=== PATIENT | female | born 1960 | race Caucasian/White ===

== ENCOUNTER 2020-08-08 09:00 | Outpatient (REF) | payer BC, SELFPAY ==
--- NOTE | 2020-08-08 09:05 | MR_ITS ---
EXAMINATION: BRAIN MRI WITHOUT CONTRAST CLINICAL INFORMATION: Multiple sclerosis. COMPARISON: Brain MRI 08/04/2019. TECHNIQUE: Multiplanar MR imaging of the brain was performed without contrast. FINDINGS: There are numerous foci of T2 FLAIR signal hyperintensity primarily involving the supratentorial white matter with a predilection for the juxtacortical white matter and callososeptal interface consistent with the patient's clinical history of multiple sclerosis. Overall the extent of disease has remained stable when compared to prior imaging from 08/04/2019 with no evidence of new or worsening demyelination. There is no acute territorial infarct. No pathological magnetic susceptibility artifact. Intracranial vascular flow voids are grossly maintained. The small laterally projecting dome-shaped meningioma involving the left anterior clinoid process is suboptimally assessed on this examination due to the absence of intravenous contrast. Grossly it has remained stable and there are no abnormal signal changes within the adjacent temporal lobe. No intracranial mass effect or midline shift. Lateral and third ventricles are proportionate to the subarachnoid spaces. The cervicomedullary junction is normal. No acute bone marrow signal changes. There is no mastoid or middle ear effusion. No active paranasal sinus disease. MR/MR head/brain wo con IMPRESSION: Stable chronic white matter disease consistent with the patient's clinical history of multiple sclerosis. The small laterally projecting dome-shaped meningioma involving the left anterior clinoid process is suboptimally assessed on this examination due to the absence of intravenous contrast. Grossly it has remained stable and there are no abnormal signal changes within the adjacent temporal lobe.
== END 2020-08-08 09:01 | disposition home or self-care (01) ==
LOC: HO.MRI 09:00
PROVIDERS: PCP Physician Assistant; Visit Provider Psychiatry & Neurology Neurology
DX: G35 Multiple sclerosis (principal)
CPT/HCPCS: 70551

== ENCOUNTER 2020-11-24 09:41 | Outpatient (REF) | payer BC, SELFPAY ==
--- NOTE | ~2020-11-24 | US_ITS ---
EXAMINATION: US EXTRACRANIAL CAROTID DUPLEX, BILATERAL CLINICAL INFORMATION: Amaurosis fugax. COMPARISON: None. TECHNIQUE: Real-time ultrasound and Doppler techniques (integrating B-mode 2-D vascular images, Doppler spectral analysis and color-flow Doppler imaging) were utilized to interrogate the extracranial carotid arteries, the vertebral arteries and proximal subclavian arteries bilaterally. The degree of stenosis is determined by criteria similar to NASCET. FINDINGS: Right Side: 1. There is minimal atherosclerotic plaque seen in the bifurcation/proximal ICA region. 2. The common carotid artery PSV proximally is 106 cm/s and distally 91.5 cm/s. 3. The proximal internal carotid artery velocities are 75 cm/s systolic and 20.5 cm/s diastolic. Distal internal carotid artery velocities are 140 cm/s systolic and 41.6 cm/s diastolic. 4. The proximal external carotid artery PSV is 117 cm/s. 5. The vertebral artery shows antegrade flow. 6. The subclavian artery waveforms are normal. Left Side: 1. There is minimal atherosclerotic plaque seen in the bifurcation/proximal ICA region. 2. The common carotid artery PSV proximally is 128 cm/s and distally 95.1 cm/s. 3. The proximal internal carotid artery velocities are 56.2 cm/s systolic and 16.9 cm/s diastolic. 4. The proximal external carotid artery PSV is 118 cm/s. 5. The vertebral artery shows antegrade flow. 6. The subclavian artery waveforms are normal. US/US carotid duplex BI IMPRESSION: 1. RIGHT: Minimal, non-hemodynamically significant stenosis of the proximal right internal carotid artery corresponding to a 0-49% stenosis by velocity criteria. Taking into account velocity in the distal internal carotid artery, this may correspond with a 50-79% stenosis. 2. LEFT: Minimal, non-hemodynamically significant stenosis of the proximal left internal carotid artery corresponding to a 0-49% stenosis by velocity criteria.
--- NOTE | ~2020-11-24 | CT_ITS ---
EXAMINATION: CT HEAD WITHOUT CONTRAST CLINICAL INFORMATION: Osteochondromatosis fugax COMPARISON: MRI brain 08/08/2020 TECHNIQUE: Contiguous axial imaging was performed from the skull base to vertex without intravenous administration of contrast. This CT examination was performed using dose optimization techniques as appropriate, variously including the following: *Automated exposure control *Adjustment of mA and/or kV according to patient size (this includes techniques or standardized protocols for targeted exams where dose is matched to indication/reason for exam; i.e. extremities or head) *Use of iterative reconstruction technique DLP: 774 mGy-cm FINDINGS: There is no evidence of acute intracranial hemorrhage or territorial infarction. There are several subcortical hypodensities in periventricular white matter likely related to demyelination as were present on the previous MRI 08/08/2020. No abnormal mass effect or midline shift is seen. [place] to white matter differentiation is well preserved. No extra-axial fluid collections are identified. The ventricles are normal in size. There is no abnormal attenuation within the brain parenchyma. The osseous structures and soft tissues are normal. The mastoid air cells and visualized portions of the paranasal sinuses are well aerated. CT/CT head/brain wo con IMPRESSION: No acute intracranial process seen. Several subcortical hypodensities in both cerebral hemispheres likely demyelination changes. These are stable compared to MRI brain 08/08/2020.
== END 2020-11-24 09:42 | disposition home or self-care (01) ==
LOC: HO.US 09:41
PROVIDERS: PCP Physician Assistant; Visit Provider Physician Assistant
DX: G45.3 Amaurosis fugax (principal)
CPT/HCPCS: 70450; 93880

== ENCOUNTER 2021-06-20 12:13 | Outpatient (REF) | payer BC, SELFPAY | END 2021-06-20 12:14 | disposition home or self-care (01) | LOC: HO.MDS 12:13 | PROVIDERS: PCP Physician Assistant; Visit Provider Psychiatry & Neurology Neurology | DX: G35 Multiple sclerosis (principal); M54.5 Low back pain; L03.90 Cellulitis, unspecified | CPT/HCPCS: 96365; J2930 ==

== ENCOUNTER 2021-06-21 13:42 | Outpatient (REF) | payer BC, SELFPAY | END 2021-06-21 13:43 | disposition home or self-care (01) | LOC: HO.MDS 13:42 | PROVIDERS: PCP Physician Assistant; Visit Provider Psychiatry & Neurology Neurology | DX: G35 Multiple sclerosis (principal) | CPT/HCPCS: 96365; J2930 ==

== ENCOUNTER 2021-07-12 07:22 | Outpatient (REF) | payer BC, SELFPAY ==
[2021-07-12 08:04] LABS: Hematocrit 39.3 % (37-47); Hemoglobin 13.3 g/dl (12.0-16.0); Mean Corpuscular HGB Conc 33.8 g/dl (31.0-35.0); Mean Corpuscular Hemoglobin 32.7 pg (27.0-33.0); Mean Corpuscular Volume 96.6 fL (80-98); Mean Platelet Volume 10.2 fL (9.4-12.3); Platelet Count 230 X10*3/uL (160-400); Red Blood Count 4.07 X10*6/uL (4.20-5.50); Red Cell Distribution Width 12.4 % (11.0-16.0); White Blood Count 5.5 X10*3/uL (4.8-10.8)
[2021-07-12 08:23] LABS: Alanine Aminotransferase 45 U/L (0-31); Alkaline Phosphatase 60 U/L (39-117); Anion Gap 11 (12-20); Aspartate Amino Transferase 32 U/L (5-31); Bilirubin Total 1.4 mg/dL (0.0-1.0); Blood Urea Nitrogen 14 mg/dL (9-16); Calcium 9.1 mg/dL (8.4-10.2); Carbon Dioxide 28 mmol/L (22-29); Chloride 107 mmol/L (96-108); Cholesterol 183 mg/dL; Estimated Glomerular Filt Rate > 60; Glucose Fasting 155 mg/dL (60-99); HDL Cholesterol 58 mg/dL; LDL Cholesterol Calculated 97 mg/dl; Potassium 4.9 mmol/L (3.3-5.1); Sodium 141 mmol/L (135-145); Total Protein 6.2 g/dL (6.5-8.0); Triglycerides 142 mg/dL
[2021-07-12 08:47] LABS: TSH reflex Free T4 1.05 uIU/mL (0.32-4.0)
[2021-07-12 12:09] LABS: Creatinine Urine 106.08 mg/dL; Microalbumin Urine < 5.0 mg/L
== END 2021-07-12 07:23 | disposition home or self-care (01) ==
LOC: HO.LAB 07:22
PROVIDERS: PCP Physician Assistant; Visit Provider Physician Assistant
DX: I10 Essential (primary) hypertension (principal)
CPT/HCPCS: 36415; 80053; 80061; 82043; 84443; 85027

== ENCOUNTER 2021-09-06 08:14 | Outpatient (REF) | payer BC, SELFPAY ==
--- NOTE | ~2021-09-06 | US_ITS ---
EXAMINATION: US ABDOMEN COMPLETE CLINICAL INFORMATION: Abnormal levels of serum enzymes. COMPARISON: None TECHNIQUE: Real-time imaging of the abdominal viscera. FINDINGS: PANCREAS: Normal. ABDOMINAL AORTA: The proximal, mid, and distal segments are normal in caliber. INFERIOR VENA CAVA: Visualized portions are normal. LIVER: The liver is normal in size. The liver contour is normal. There is increased liver echogenicity. No focal hepatic lesion. There is no intrahepatic biliary duct dilatation seen. GALLBLADDER: The gallbladder wall thickness is 0.14 cm. The gallbladder is physiologically distended without evidence of stones, sludge, polyps, wall thickening or pericholecystic fluid. COMMON BILE DUCT: Normal in caliber measuring 0.4 cm in diameter. RIGHT KIDNEY: There is mild pelvic fullness No hydronephrosis. No renal calculi or focal parenchymal lesions. The kidney measures 10.6 cm in maximum dimension. LEFT KIDNEY: There is mild pelvic fullness No hydronephrosis. No renal calculi or focal parenchymal lesions. The kidney measures 11.3 cm in maximum dimension. SPLEEN: Normal. The spleen measures 8.7 cm in maximum dimension. FREE FLUID: None. US/US abdomen complete IMPRESSION: Mild hepatic steatosis. No focal lesion seen. Bilateral kidney pelvic fullness. No echogenic renal calculi. Rest of the abdominal ultrasound is unremarkable.
== END 2021-09-06 08:15 | disposition home or self-care (01) ==
LOC: HO.US 08:14
PROVIDERS: PCP Physician Assistant; Visit Provider Physician Assistant
DX: R74.8 Abnormal levels of other serum enzymes (principal)
CPT/HCPCS: 76700

== ENCOUNTER 2022-03-26 06:21 | Outpatient (REF) | payer BC, SELFPAY ==
[2022-03-26 07:34] LABS: Hematocrit 40.7 % (37.0-47.0); Hemoglobin 13.9 g/dl (12.0-16.0); Mean Corpuscular HGB Conc 34.2 g/dl (31.0-35.0); Mean Corpuscular Hemoglobin 32.7 pg (27.0-33.0); Mean Corpuscular Volume 95.8 fL (80.0-98.0); Mean Platelet Volume 10.5 fL (9.4-12.3); Platelet Count 240 X10*3/uL (160-400); Red Blood Count 4.25 X10*6/uL (4.20-5.50); Red Cell Distribution Width 12.5 % (11.0-16.0); White Blood Count 5.8 X10*3/uL (4.8-10.8)
[2022-03-26 07:57] LABS: Alanine Aminotransferase 29 U/L (0-31); Albumin Level 3.8 g/dL (3.5-5.0); Alkaline Phosphatase 55 U/L (39-117); Anion Gap 11 (12-20); Aspartate Amino Transferase 30 U/L (5-31); Bilirubin Total 1.3 mg/dL (0.0-1.0); Blood Urea Nitrogen 15 mg/dL (9-16); Calcium 9.3 mg/dL (8.4-10.2); Carbon Dioxide 28 mmol/L (22-29); Chloride 105 mmol/L (96-108); Cholesterol 156 mg/dL; Estimated Glomerular Filt Rate > 60; Glucose Fasting 131 mg/dL (60-99); HDL Cholesterol 54 mg/dL; LDL Cholesterol Calculated 91 mg/dl; Potassium 4.7 mmol/L (3.3-5.1); Sodium 139 mmol/L (135-145); Total Protein 6.2 g/dL (6.5-8.0); Triglycerides 58 mg/dL
== END 2022-03-26 06:22 | disposition home or self-care (01) ==
LOC: HO.LAB 06:21
PROVIDERS: PCP Physician Assistant; Visit Provider Physician Assistant
DX: E10.65 Type 1 diabetes mellitus with hyperglycemia (principal); I10 Essential (primary) hypertension
CPT/HCPCS: 36415; 80053; 80061; 84443; 85027

== ENCOUNTER 2023-01-22 06:35 | Outpatient (REF) | payer BC, SELFPAY ==
[2023-01-22 07:38] LABS: Hematocrit 42.5 % (37.0-47.0); Hemoglobin 14.5 g/dl (12.0-16.0); Mean Corpuscular HGB Conc 34.1 g/dl (31.0-35.0); Mean Corpuscular Hemoglobin 32.4 pg (27.0-33.0); Mean Corpuscular Volume 94.9 fL (80.0-98.0); Mean Platelet Volume 10.7 fL (9.4-12.3); Platelet Count 248 X10*3/uL (160-400); Red Blood Count 4.48 X10*6/uL (4.20-5.50); Red Cell Distribution Width 12.4 % (11.0-16.0); White Blood Count 5.7 X10*3/uL (4.8-10.8)
[2023-01-22 08:23] LABS: Alanine Aminotransferase 22 U/L (0-31); Albumin Level 3.8 g/dL (3.5-5.0); Alkaline Phosphatase 55 U/L (39-117); Anion Gap 14 (12-20); Aspartate Amino Transferase 28 U/L (5-31); Bilirubin Total 1.3 mg/dL (0.0-1.0); Blood Urea Nitrogen 16 mg/dL (9-16); Calcium 9.3 mg/dL (8.4-10.2); Carbon Dioxide 28 mmol/L (22-29); Chloride 105 mmol/L (96-108); Estimated Glomerular Filt Rate 53; Glucose Fasting 167 mg/dL (60-99); Sodium 142 mmol/L (135-145)
[2023-01-22 08:31] LABS: TSH reflex Free T4 1.76 uIU/mL (0.32-4.0)
== END 2023-01-22 06:36 | disposition home or self-care (01) ==
LOC: HO.LAB 06:35
PROVIDERS: PCP Physician Assistant; Visit Provider Physician Assistant
DX: E10.3493 Type 1 diabetes mellitus with severe nonproliferative diabetic retinopathy without macular edema, bilateral (principal); I10 Essential (primary) hypertension
CPT/HCPCS: 36415; 80053; 84443; 85027

== ENCOUNTER 2023-07-24 06:40 | Outpatient (REF) | payer BC, SELFPAY | END 2023-07-24 06:41 | disposition home or self-care (01) | LOC: HO.LAB 06:40 | PROVIDERS: Visit Provider Physician Assistant | DX: E10.3493 Type 1 diabetes mellitus with severe nonproliferative diabetic retinopathy without macular edema, bilateral (principal); E03.9 Hypothyroidism, unspecified | CPT/HCPCS: 36415; 80053; 80061; 84443; 85027 ==

== ENCOUNTER 2023-07-31 13:26 | Outpatient (AMB) | payer BC, SELFPAY ==
[2023-07-31 13:23] VITALS: BMI 28.2
--- NOTE | 2023-07-31 13:23 | MHC.PC.OV ---
Vital Signs 07/31/23 13:23 Height 5 ft 1 in Weight 149 lb BMI 28.2 Intake Visit Reasons: 6m F/U Intake Note: Telehealth call for 6 months F/U. 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 Accompanied by: Self / Same As Patient Allergies glatiramer (copolymer 1) [From Copaxone] Allergy (Mild, Verified 07/31/23 13:36) Hives codeine [CODEINE] Allergy (Unknown, Verified 07/31/23 13:36) NAUSEA & VOMITING penicillin V Allergy (Unknown, Verified 07/31/23 13:36) hives Penicillins [PENICILLINS] Allergy (Unknown, Verified 07/31/23 13:36) HIVES Medication List - Last Reconciled 07/31/23 by Neftali Nguyen PA-C atorvastatin 10 mg PO DAILY 90 days blood-glucose meter,continuous (Dexcom G6 Vocational Services Specialist) As directed blood-glucose transmitter (Dexcom G6 Transmitter device) As directed brimonidine 0.1% (Alphagan P) drps ophthalmic (eye) diazepam 5 mg PO ONCE 7 days diclofenac sodium 75 mg PO BID dorzolamide-timolol (PF) 2-0.5 % 1 drp ophthalmic (eye) BID gabapentin mg PO insulin lispro (Humalog U-100 Insulin) subcut levothyroxine (Synthroid) 112 mcg PO DAILY metoprolol succinate ER 12.5 mg (1/2 x 25 mg) PO DAILY ramipril 10 mg PO DAILY 90 days tafluprost (PF) 0.0015% drps ophthalmic (eye) travoprost 0.004% drps ophthalmic (eye) Tobacco use date assessed: 01/29/23 Dental Screening Dental Screen Date: 07/31/23 Did you have a dental visit in the last 12 months?: Yes Did you have a dental problem in the last 6 months where you did not have access to dental care?: No Was dental information given to patient?: Patient has dentist HPI 6m F/U HPI Details Patient is a 63-year-old female being evaluated today via telephone only.? Patient has a past medical history significant for type 1 diabetes, Tabacco dependency, multiple sclerosis, hyperlipidemia, hypertension. . Type 1 diabetes:? continues to follow Endocrinology. Fasting blood sugars was much improved since getting new insulin pump. She reports her estimated A1c is around 6.4 at home. Recently has a retina hemorrhage and is getting injections. Also had multiple retinal surgery over the last year. Roly has been getting injections in her eyes to reduce retinal bleeding. Still has visual distortions. .. Tobacco dependency: She does admit she is still smoking a few cigarettes per day. She does understand she needs to quit. Has tried nicotine replacement in the past has not been effective for her. She will try to work on weaning off cigarettes on her own. .. HTN: Pressures at home are report to be 120-130s systolic.? She denies any chest discomfort, palpitations.? She does report having vision issues though was found to proliferative retinopathy and retinal hemorrhage to which she has seen retail coverage merchandiser for. .. MS:?(secondary progressive MS) : Patient is followed by a neurologist.? Reports she has not had to get infusions in recent history due to her MS being stable. ? Laboratory Tests 01/29/23 07/24/23 07/24/23 10:21 07:00 07:00 RBC 4.35 Fasting Glucose 130 H Hgb A1c (Clinic) 7.0 H Cholesterol 175 HDL Cholesterol 70 TSH 2.00 [facility] Medical History (Updated 08/01/23 @ 07:34 by Neftali Nguyen PA-C) Amaurosis fugax Surgical History History of dental surgery History of laparotomy History of tonsillectomy Social History Housing: House Alcohol intake: never Patient Tobacco Use Status: Current someday Tobacco user Tobacco use type: Cigarette Cigarettes Per Day: 10 e-Cigarette/Vaping Use: Never Used Second Hand Smoke Exposure: Yes service: No Current occupational status: disabled Cognitive needs: Yes (Pt is on wheel chair ) Hearing needs: No Vision needs: Yes Questionnaire Thrive Questionnaire Date Thrive assessed: 01/29/23 BASIM-7 AMB Questionnaire BASIM-7 Date BASIM - 7 assessed: 01/29/23 Source: Developed by Drs. Julio Hines, Graciela Conte, Robe Jackson and colleagues, with an educational amber from [employer] Review of Systems Const Denies headache(s) Eyes Denies loss of vision ENT Denies vertigo, Denies dizziness, Denies headache(s) and Denies sore throat Card Denies chest pain, Denies leg edema and Denies lightheadedness Resp Denies cough, Denies hemoptysis and Denies wheezing GI Denies abdominal pain, Denies melena, Denies constipation, Denies diarrhea and Denies vomiting Denies urinary frequency, Denies dysuria and Denies urinary urgency Musc Denies arthralgias, Denies joint swelling, Denies numbness and Denies tingling Neuro Denies behavioral changes, Denies vertigo, Denies dizziness, Denies headache(s), Denies loss of vision, Denies memory loss, Denies numbness and Denies tingling Psych Denies anxiety, Denies behavioral changes, Denies depression, Denies memory loss and Denies panic attacks Jordon/Lymph Denies easy bleeding and Denies easy bruising Aller/Immun Denies wheezing Physical exam (Primary Care) BMI result Body Mass Index 28.2 Tobacco/Smoking Status: Tobacco use Status Tobacco use date assessed 01/29/23 07/31/23 13:26 Patient Tobacco Use Status Current someday Tobacco 07/31/23 13:26 Tobacco use type Cigarette 07/31/23 13:26 e-Cigarette/Vaping Use Never Used 07/31/23 13:26 Are you ready to quit: No Tobacco cessation counseling provided: Yes Items discussed: Nicotine replacement Relapse Prevention: discussed the importance of a supportive environment, discussed negative mood or depression after quitting and weight gain after smoking is common Number of minutes spent counselin CPT code: 29038 - 4-10 Minutes Thrive Assessment: Date of Thrive Assessment Date Thrive assessed 01/29/23 07/31/23 13:26 Telehealth Telehealth Location of provider rendering services: practice address Location of patient: address on file Patient Identification confirmed using: Name, : Yes Telehealth method: voice only Patient verbally consented to treatment: Yes Patient verbally consented to billing insurance company: Yes Patient informed of any privacy concerns related to visit: Yes Minutes spent on Phone/Video with Pt.: 11 Assessment and Plan Assessment & Plan (1) Type 1 diabetes: Code(s): E10.9 - Type 1 diabetes mellitus without complications Qualifiers: Diabetes mellitus complication detail: with diabetic retinopathy Diabetes mellitus complication status: with ophthalmic complications Diabetes mellitus macular edema: without macular edema Diabetic retinopathy severity: with severe nonproliferative retinopathy Laterality: bilateral Qualified Code(s): E10.3493 - Type 1 diabetes mellitus with severe nonproliferative diabetic retinopathy without macular edema, bilateral Plan: Patient continues to follow with tack welder, . She now has a new insulin pump and glucose monitoring system that have allowed her to manage her blood sugars much better. Goal A1c to be below 7.0 Again was still followed by retinal specialist due to her diabetic retinopathy and retinal hemorrhages, has undergone several injections and retinal surgeries with minimal effectiveness . (2) Tobacco dependence: Code(s): F17.200 - Nicotine dependence, unspecified, uncomplicated Plan: Patient does understand she needs to quit smoking though has a hard time doing so, declines my offers to start nicotine replacement therapy. (3) Hypothyroidism: Code(s): E03.9 - Hypothyroidism, unspecified Qualifiers: Hypothyroidism type: acquired Qualified Code(s): E03.9 - Hypothyroidism, unspecified Plan: Patient continues on levothyroxine 112 mcg and has been clinically and chemically euthyroid for quite a while. Will continue to follow TSH to assure normal (4) Retinopathy due to secondary diabetes mellitus: Code(s): E13.319 - Other specified diabetes mellitus with unspecified diabetic retinopathy without macular edema Plan: Continues to follow ophthalmology and skin with regular retinal injections. Of note does use diazepam before her Ophthalmology procedures. (5) Multiple sclerosis: Code(s): G35 - Multiple sclerosis Plan: Continues to follow Neurology. She mostly wheelchair-dependent. Orders: Orders Comprehensive [employer] Panel Fast 6 Months E10.3493 - Type 1 diabetes mellitus with severe nonproliferative diabetic retinopathy without macular edema, bilateral Microalbumin, Random (w Creat) 6 Months I10 - Essential (primary) hypertension TSH reflex Free T4 6 Months E03.9 - Hypothyroidism, unspecified Lipid Panel 6 Months E10.3493 - Type 1 diabetes mellitus with severe nonproliferative diabetic retinopathy without macular edema, bilateral Medications: Refilled diazepam 5 mg PO ONCE 7 days 7 tabs 0RF pre procedure F41.9 - Anxiety disorder, unspecified Coding Level of Care Code Tele Est Pt Level 4 (33156) Diagnoses Type 1 diabetes mellitus with severe nonproliferative retinopathy of both eyes without macular edema E10.3493 Diabetes mellitus complication detail: with diabetic retinopathy Diabetes mellitus complication status: with ophthalmic complications Diabetes mellitus macular edema: without macular edema Diabetic retinopathy severity: with severe nonproliferative retinopathy Laterality: bilateral Tobacco dependence F17.200 Acquired hypothyroidism E03.9 Hypothyroidism type: acquired Retinopathy due to secondary diabetes mellitus E13.319 Multiple sclerosis G35 Additional Codes Vital Signs *Quality* - CPT code: 47293 - 4-10 Minutes ([id number])
== END 2023-07-31 14:10 | disposition home or self-care (01) ==
LOC: HO.HMGH 13:26
PROVIDERS: PCP Physician Assistant; Visit Provider Physician Assistant
DX: E10.3493 Type 1 diabetes mellitus with severe nonproliferative diabetic retinopathy without macular edema, bilateral (principal); F17.210 Nicotine dependence, cigarettes, uncomplicated; G35 Multiple sclerosis; E03.9 Hypothyroidism, unspecified
CPT/HCPCS: 99442

== ENCOUNTER 2024-02-04 13:23 | Outpatient (AMB) | payer MEDICARE, SELFPAY ==
[2024-02-04 13:31] VITALS: BP 140/68; PULSE 60; O2SAT 98; BMI 31.6
--- NOTE | 2024-02-04 13:31 | MHC.PC.OV ---
Vital Signs 02/04/24 13:31 Height 5 ft 1 in Weight 167 lb 5.294 oz BMI 31.6 BP 140/68 H Blood Pressure Location Lt brachial Position Sitting Pulse 60 Pulse Source Pulse Oximeter Pulse Oximetry (%) 98 Oxygen Delivery Method Room Air Intake Visit Reasons: pe Intake Note: Patient is here today for a physical. Depot Manager Required: No Accompanied by: Self / Same As Patient Allergies glatiramer (copolymer 1) [From Copaxone] Allergy (Mild, Verified 02/04/24 13:52) Hives codeine [CODEINE] Allergy (Unknown, Verified 02/04/24 13:52) NAUSEA & VOMITING penicillin V Allergy (Unknown, Verified 02/04/24 13:52) hives Penicillins [PENICILLINS] Allergy (Unknown, Verified 02/04/24 13:52) HIVES Medication List - Last Reconciled 02/04/24 by Neftali Nguyen PA-C atorvastatin 10 mg PO DAILY 90 days blood-glucose meter,continuous (Dexcom G6 Switch Foreman) As directed blood-glucose transmitter (Dexcom G6 Transmitter device) As directed brimonidine 0.1% (Alphagan P) drps ophthalmic (eye) dorzolamide-timolol (PF) 2-0.5 % 1 drp ophthalmic (eye) BID gabapentin mg PO insulin lispro (Humalog U-100 Insulin) subcut levothyroxine (Synthroid) 112 mcg PO DAILY metoprolol succinate ER 12.5 mg (1/2 x 25 mg) PO DAILY ramipril 10 mg PO DAILY 90 days tafluprost (PF) 0.0015% drps ophthalmic (eye) Tobacco use date assessed: 02/04/24 Dental Screening Dental Screen Date: 02/04/24 Did you have a dental visit in the last 12 months?: Yes Did you have a dental problem in the last 6 months where you did not have access to dental care?: No Was dental information given to patient?: Patient has dentist HPI pe HPI Details Patient is a 63-year-old female here today for routine annual physical.? Patient has a past medical history significant for type 1 diabetes, Tabacco dependency, multiple sclerosis, hyperlipidemia, hypertension. . Type 1 diabetes:? continues to follow Endocrinology. Fasting blood sugars was much improved since getting new insulin pump. Today's A1c AT 5.7. Which is an all time low for her. She is very excited about this. Recently has a retina hemorrhage and is getting injections. Also had multiple retinal surgery over the last year. Pateint has been getting injections in her eyes to reduce retinal bleeding. Still has visual distortions. .. Tobacco dependency: She does admit she is still smoking a few cigarettes per day. She does understand she needs to quit. Has tried nicotine replacement in the past has not been effective for her. She will try to work on weaning off cigarettes on her own. .. HTN: Pressures at home are report to be 120-130s systolic. Patient's blood pressures today slightly elevated at 140 systolic. ? She denies any chest discomfort, palpitations.? She does report having vision issues though was found to proliferative retinopathy and retinal hemorrhage to which she has seen acute care physical therapist for. .. MS:?(secondary progressive MS) : Patient is followed by a neurologist.? Reports she has not had to get infusions in recent history due to her MS being stable. ? Colon cancer screening: Colonoscopy done in 2017 Dr Faustin normal-repeat 10 years Mammogram: Done in June 2023, BI-RADS 1 Vaccines: Up-to-date with pneumonia, Tdap, flu, COVID and shingles vaccines. [facility] Medical History Amaurosis fugax Surgical History History of dental surgery History of laparotomy History of tonsillectomy Social History (Updated 02/04/24 @ 14:00 by Neftali Nguyen PA-C) Housing: House Alcohol intake: current Alcohol intake frequency: holidays/special occasions only Patient Tobacco Use Status: Current someday Tobacco user Tobacco use type: Cigarette Cigarettes Per Day: 10 e-Cigarette/Vaping Use: Never Used Second Hand Smoke Exposure: Yes service: No Current occupational status: disabled Cognitive needs: Yes (Pt is on wheel chair ) Hearing needs: No Vision needs: Yes Questionnaire PHQ-9 Over the last 2 weeks, how often have you been bothered by any of the following problems? 1. Little interest or pleasure in doing things: not at all 2. Feeling down, depressed, or hopeless: not at all 3. Trouble falling or staying asleep, or sleeping too much: not at all 4. Feeling tired or having little energy: not at all 5. Poor appetite or overeating: not at all 6. Feeling bad about yourself - or that you are a failure or have let yourself or your family down: not at all 7. Trouble concentrating on things, such as reading the newspaper or watching television: not at all 8. Moving or speaking so slowly that other people could have noticed. Or the opposite - being so fidgety or restless that you have been moving around a lot more than usual: not at all 9. Thoughts that you would be better off or of hurting yourself in some way: not at all Total score: 0 Depression Screening Interpretation: Negative Depression Screening Done: Yes 78884 - PHQ-9 Billing: Yes Source: Developed by Drs. Julio Hines, Graciela Conte, Robe Jackson and colleagues, with an educational amber from [employer]. Thrive Questionnaire Date Thrive assessed: 02/04/24 I am a: Patient What is your living situation today?: I have a steady place to live Within the past 12 months, did the food you bought not last and you didn't have the money to get more?: Never true Within the past 12 months, did you worry whether your food would run out before you got money to buy more?: Never true Do you have trouble paying for medicines?: No Do you have trouble getting transportation to medical appointments?: No Do you have trouble paying your heating and electricity bill?: No Do you have trouble taking care of your child, family member or friend?: No Do you have trouble with day-to-day activities such as bathing, preparing meals, shopping, managing finances, etc.?: No Are you currently unemployed and looking for a job?: No Are you interested in more education?: No Please select the resources that you would like help with: None Currently or been in a relationship where the following occur: no concerns reported THRIVE Score: 0 AUDIT C Alcohol Use Questionnaire (AUDIT-C) 1. How often do you have a drink containing alcohol?: Never 3. How often do you have six or more drinks on one occasion?: Never Total Score: 0 BASIM-7 AMB Questionnaire BASIM-7 Date BASIM - 7 assessed: 02/04/24 Feeling nervous, anxious, or on edge: 0 = Not at all Not being able to stop or control worryin = Not at all Worrying too much about different things: 0 = Not at all Trouble relaxin = Not at all Being so restless that it is hard to sit still: 0 = Not at all Becoming easily annoyed or irritable: 0 = Not at all Feeling afraid as if something awful might happen: 0 = Not at all Total BASIM-7 score (0-4 normal; 5-9 mild; 10-14 moderate; 15-21 severe): 0 Source: Developed by Drs. Julio Hines, Graciela Conte, Robe Jackson and colleagues, with an educational amber from [employer]. BASIM-7 Assessment Billing BASIM-7 Assessment Tool: BASIM-7 Assessment 38208 Review of Systems Const Denies body aches, Denies chills, Denies excessive sweating, Denies fatigue, Denies fever(s) and Denies headache(s) Eyes Denies blurry vision ENT Denies dysphagia, Denies vertigo, Denies dizziness, Denies headache(s), Denies hearing loss and Denies tinnitus Card Denies chest pain, Denies chest pain with activity, Denies syncope, Denies irregular heart rhythm and Denies dyspnea Resp Denies chest congestion, Denies cough, Denies hemoptysis, Denies dyspnea and Denies wheezing GI Denies abdominal pain, Denies melena, Denies hematochezia, Denies coffee ground emesis, Denies dysphagia, Denies diarrhea, Denies nausea and Denies vomiting Denies urinary frequency, Denies dysuria, Denies urinary hesitancy and Denies urinary urgency Musc Denies arthralgias, Denies limited range of motion, Denies muscle cramps and Denies muscle weakness Skin/Breast Denies rash and Denies skin ulcer Neuro Denies Abnormal speech present, Denies confusion, Denies vertigo, Denies dizziness, Denies syncope, Denies headache(s), Denies memory loss and Denies seizure-like activity Psych Denies anxiety, Denies confusion, Denies depression, Denies memory loss, Denies panic attacks and Denies paranoia Endo Denies excessive sweating, Denies fatigue, Denies flushing, Denies polydipsia and Denies polyuria Aller/Immun Denies wheezing Physical exam (Primary Care) Vital Signs: Last Vital Signs Pulse 60 02/04/24 13:31 BP 140/68 H 02/04/24 13:31 Pulse Ox 98 02/04/24 13:31 Oxygen Delivery Method Room Air 02/04/24 13:31 BMI result Body Mass Index 31.6 Tobacco/Smoking Status: Tobacco use Status Tobacco use date assessed 02/04/24 02/04/24 13:37 Patient Tobacco Use Status Current someday Tobacco 02/04/24 14:00 Tobacco use type Cigarette 02/04/24 14:00 e-Cigarette/Vaping Use Never Used 02/04/24 14:00 Are you ready to quit: No Tobacco cessation counseling provided: Yes Items discussed: Nicotine replacement and QuitWorks Relapse Prevention: discussed the importance of a supportive environment, discussed negative mood or depression after quitting, weight gain after smoking is common and discussed dietary, exercise and/or lifestyle changes Number of minutes spent counselin CPT code: 83530 - 4-10 Minutes PHQ-9: PHQ-9 Score PHQ-9: Total score 0 02/04/24 14:08 Depression Screening Interpretation: Negative Thrive Assessment: Date of Thrive Assessment Date Thrive assessed 02/04/24 02/04/24 13:37 Currently or been in a relationship where the following occur: no concerns reported Const Other: Sitting comfortably in electric wheelchair General: cooperative, comfortable, no acute distress, alert and awake; No confusion Orientation/consciousness: oriented to person, oriented to place, patient oriented x3 and No confusion HENMT Head: Yes normocephalic Ears: external ears normal and TM's normal bilaterally Face and sinus: No sinus tenderness Mouth: Normal oral and palatal mucosa present and tongue normal Teeth and gingiva: dentition normal and gingiva normal Throat: Yes posterior oropharynx normal, Yes tonsils normal and Yes uvula midline Eyes Conjunctivae: conjunctivae normal Sclerae: sclerae normal Pupils: Equal, round and reactive pupils present EOM: EOMs intact bilaterally Direct Ophthalmoscopy: No no photophobia Neck Neck: Yes no lymphadenopathy, No tender and Yes no JVD Thyroid: Thyroid normal Carotids: no bruits Chest Chest palpation & inspection: no tenderness Resp Effort & Inspection: normal respiratory effort, no audible wheezes, not labored and no stridor Auscultation: no crackles, no rales, no rhonchi and no wheezes Cardio Jugular venous distension: no JVD Rate: regular rate, not bradycardic and not tachycardic Rhythm: regular rhythm Bruits: no carotid bruits Peripheral pulses: Peripheral pulses 2+ throughout GI Inspection: Yes normal to inspection, No abdominal wall ecchymosis and No visible herniation Palpation (GI): Soft to palpation, nontender, no guarding, not rigid and No hepatosplenomegaly present Auscultation: normoactive bowel sounds General: Yes no CVA tenderness Back/Spine/Pelvis Back: no CVA tenderness and No back tenderness Cervical Spine: cervical ROM normal Thoracic/Lumbar Spine: thoracic and lumbar spine normal to inspection, straight leg raise negative bilaterally, No thoraco-lumbar ROM limited and No lumbar spinal tenderness Skin Lesions: no lesions Rashes: no rashes Wounds: no wounds Neuro General: oriented to person, oriented to place, patient oriented x3, CN's II-XI intact bilaterally and No confusion Cranial nerves: Yes Equal, round and reactive pupils present and Yes Normal accommodation reflex present Cognition (Neuro): normal cognition Speech: No Abnormal speech present Gait exam (Neuro): Normal gait present Motor exam (neuro): 5/5 motor strength present throughout Extrem Right upper extremity: full ROM; no cyanosis Left upper extremity: full ROM; no cyanosis Right lower extremity: no edema Left lower extremity: no edema Psych Appearance: grossly normal Mental Status: mental status grossly normal Affect: normal affect Attitude: cooperative Thought process: Normal thought process present Results AMB Hemoglobin A1c AMB Hemoglobin A1c 5.7 % Last Edit by TALIB Doyle on 02/04/24 14:08 Results Reviewed Results Reviewed: Laboratory Last Values Hgb A1c (Clinic) 5.7 % (4.0-6.0) 02/04/24 13:29 Assessment and Plan Assessment & Plan (1) Annual physical exam: Code(s): Z00.00 - Encounter for general adult medical examination without abnormal findings (2) Type 1 diabetes: Code(s): E10.9 - Type 1 diabetes mellitus without complications Qualifiers: Diabetes mellitus complication detail: with diabetic retinopathy Diabetes mellitus complication status: with ophthalmic complications Diabetes mellitus macular edema: without macular edema Diabetic retinopathy severity: with severe nonproliferative retinopathy Laterality: bilateral Qualified Code(s): E10.3493 - Type 1 diabetes mellitus with severe nonproliferative diabetic retinopathy without macular edema, bilateral Plan: Patient continues to follow with regional medical director, She now has a new insulin pump and glucose monitoring system that have allowed her to manage her blood sugars much better. Her A1c now is 5.7. Goal A1c to be below 7.0 Again was still followed by retinal specialist due to her diabetic retinopathy and retinal hemorrhages, has undergone several injections and retinal surgeries with minimal effectiveness . (3) Tobacco dependence: Code(s): F17.200 - Nicotine dependence, unspecified, uncomplicated Plan: Patient does understand she needs to quit smoking though has a hard time doing so, declines my offers to start nicotine replacement therapy. (4) Hypothyroidism: Code(s): E03.9 - Hypothyroidism, unspecified Qualifiers: Hypothyroidism type: acquired Qualified Code(s): E03.9 - Hypothyroidism, unspecified Plan: Patient continues on levothyroxine 112 mcg and has been clinically and chemically euthyroid for quite a while. Will continue to follow TSH to assure normal (5) Retinopathy due to secondary diabetes mellitus: Code(s): E13.319 - Other specified diabetes mellitus with unspecified diabetic retinopathy without macular edema Plan: Continues to follow ophthalmology and getting regular retinal injections. Of note does use diazepam before her Ophthalmology procedures. She is currently legally blind. (6) Multiple sclerosis: Code(s): G35 - Multiple sclerosis Plan: Continues to follow Neurology. She mostly wheelchair-dependent. Orders: Orders TSH reflex Free T4 02/04/24 E03.9 - Hypothyroidism, unspecified Lipid Panel 02/04/24 E10.3493 - Type 1 diabetes mellitus with severe nonproliferative diabetic retinopathy without macular edema, bilateral AMB Hemoglobin A1c 02/04/24 E10.3493 - Type 1 diabetes mellitus with severe nonproliferative diabetic retinopathy without macular edema, bilateral Comprehensive [place]. Panel Fast 02/04/24 E10.3493 - Type 1 diabetes mellitus with severe nonproliferative diabetic retinopathy without macular edema, bilateral Microalbumin, Random (w Creat) 02/04/24 I10 - Essential (primary) hypertension Patient Instructions: Goal: Maintain A1c below 7.0 Barriers: Comorbid medical conditions Coding Level of Care Code Est Pt Prev Care 40-64y(11044) Diagnoses Annual physical exam Z00.00 Type 1 diabetes mellitus with severe nonproliferative retinopathy of both eyes without macular edema E10.3493 Diabetes mellitus complication detail: with diabetic retinopathy Diabetes mellitus complication status: with ophthalmic complications Diabetes mellitus macular edema: without macular edema Diabetic retinopathy severity: with severe nonproliferative retinopathy Laterality: bilateral Tobacco dependence F17.200 Acquired hypothyroidism E03.9 Hypothyroidism type: acquired Retinopathy due to secondary diabetes mellitus E13.319 Multiple sclerosis G35 Additional Codes BASIM-7 Assessment Billing - BASIM-7 Assessment Tool: BASIM-7 Assessment 63485 ([id number]) Vital Signs *Quality* - CPT code: 69132 - 4-10 Minutes ([id number])
== END 2024-02-04 14:22 | disposition home or self-care (01) ==
PROVIDERS: PCP Physician Assistant; Visit Provider Physician Assistant
DX: Z00.00 Encounter for general adult medical examination without abnormal findings (principal); E10.3493 Type 1 diabetes mellitus with severe nonproliferative diabetic retinopathy without macular edema, bilateral; F17.210 Nicotine dependence, cigarettes, uncomplicated; G35 Multiple sclerosis; E03.9 Hypothyroidism, unspecified
CPT/HCPCS: 83036; 99396

== ENCOUNTER 2024-03-20 06:20 | Outpatient (REF) | payer MEDICARE, SELFPAY ==
[2024-03-20 07:27] LABS: Alanine Aminotransferase 17 U/L (0-31); Albumin Level 3.7 g/dL (3.5-5.0); Alkaline Phosphatase 62 U/L (39-117); Anion Gap 11 (12-20); Aspartate Amino Transferase 23 U/L (5-31); Blood Urea Nitrogen 16 mg/dL (9-16); Calcium 9.4 mg/dL (8.4-10.2); Carbon Dioxide 29 mmol/L (22-29); Chloride 106 mmol/L (96-108); Cholesterol 163 mg/dL (<200); Estimated Glomerular Filt Rate 57; Glucose Fasting 199 mg/dL (60-99); HDL Cholesterol 62 mg/dL (>40); LDL Cholesterol Calculated 90 mg/dL (<100); Potassium 4.6 mmol/L (3.3-5.1); Sodium 141 mmol/L (135-145); Total Protein 6.3 g/dL (6.5-8.0); Triglycerides 57 mg/dL (<150)
[2024-03-20 07:43] LABS: TSH reflex Free T4 0.26 uIU/mL (0.32-4.0)
[2024-03-20 08:30] LABS: Free T4 (Free Thyroxine) 1.15 ng/dL (0.71-1.85)
== END 2024-03-20 06:21 | disposition home or self-care (01) ==
LOC: HO.LAB 06:20
PROVIDERS: PCP Physician Assistant; Visit Provider Physician Assistant
DX: E03.9 Hypothyroidism, unspecified (principal); E10.3493 Type 1 diabetes mellitus with severe nonproliferative diabetic retinopathy without macular edema, bilateral; I10 Essential (primary) hypertension
CPT/HCPCS: 36415; 80053; 80061; 84439; 84443